=== PATIENT | female | born 1995 | race African-American/Black ===

== ENCOUNTER 2016-12-21 17:39 | Emergency (ER) | payer OTHER ==
[~2016-12-21] VITALS: Ht 152.4 cm; Wt 54.6 kg
[2016-12-21 17:54] VITALS: Ht 152.4 cm; Wt 54.6 kg
[2016-12-21] MEDS ORDERED: BCPILLS PO (19:07)
[2016-12-21] MEDS ORDERED: IBUPROFEN 200 MG TAB PO STA (19:28)
[2016-12-21] MEDS ORDERED: ACETAMINOPHEN 500 MG TAB PO STA (19:28)
--- NOTE | 2016-12-21 19:50 | EMERGENCY ROOM VISIT NOTE ---
History Report prepared by Vik: Delvis Snow Under the Supervision of: Dr. Henrique Fitch M.D. First contact with patient: 19:04 Chief Complaint: FEVER Stated Complaint: SWOLLEN LYMPH NODES IN NECK, FEVER History of Present Illness The patient is a 21 year old black female with no significant past medical history who presents to the ED with a cc of a constant fever beginning a week ago. Positive dry cough and swollen lymph nodes. Negative recent travel, antibiotic use, hx of cancer, chronic steroid use, rashes, hx of diabetes, urinary symptoms, recent falls, alcohol, tobacco, or drug use, and history of mono. She has been urinating and having BM normally. Her LNMP was three weeks ago. Source of History: patient Onset: a week ago Position: other (global) Quality: other (fever) Timing: constant Associated Symptoms: + cough Note: Associated symptoms: swollen lymph nodes. Review of Systems See HPI for pertinent positives and negatives. A total of ten systems were reviewed and were otherwise negative. Social History Smoking Status: Never Smoker Marital Status: single Housing Status: lives with roommate Occupation Status: [employer] student Current/Historical Medications Scheduled Control Pills ( Control Pills), 1 TAB PO DAILY Allergies Coded Allergies: Azithromycin (Verified Allergy, Intermediate, Hives, 12/21/16) Physical Exam Vital Signs Date Time Temp Pulse Resp B/P (MAP) Pulse Ox O2 Delivery O2 Flow Rate FiO2 12/21/16 20:48 84 18 141/91 99 Room Air 12/21/16 17:54 37.2 90 18 150/99 99 Room Air Physical Exam GENERAL: Awake, alert, well-appearing, NAD HENT: Normocephalic, atraumatic. There is no posterior oropharynx exudate. No posterior swelling or uvular deviation. EYES: Normal conjunctiva. Sclera non-icteric. NECK: No meningismus. No nuchal rigidity. FROM. Able to flex and extend. There are 2 non-tender hard posterior lymph nodes. No erythema, fluctuance, or pain. RESPIRATORY: CTAB, no rhonchi, wheezing, crackles CARDIAC: RRR, no MRG ABDOMEN: Soft, NTND, BS+ MSK: No chest wall TTP, no LE edema NEURO: GCS 15, CN 2-12 intact, moves all 4s on command SKIN: No rash or jaundice noted. Medical Decision & Procedures Laboratory Results 12/21/16 20:11 Red Blood Count 4.50, Mean Corpuscular Volume 88.4, Mean Corpuscular Hemoglobin 30.7, Mean Corpuscular Hemoglobin Concent 34.7, Mean Platelet Volume 10.1, Neutrophils (%) (Auto) 43.6, Lymphocytes (%) (Auto) 44.1, Monocytes (%) (Auto) 10.2, Eosinophils (%) (Auto) 1.5, Basophils (%) (Auto) 0.4, Neutrophils # (Auto ) 2.30, Lymphocytes # (Auto) 2.33, Monocytes # (Auto) 0.54, Eosinophils # (Auto ) 0.08, Basophils # (Auto) 0.02 12/21/16 20:11 Test 12/21/16 20:11 White Blood Count 5.28 K/uL (4.8-10.8) Red Blood Count 4.50 M/uL (4.2-5.4) Hemoglobin 13.8 g/dL (12.0-16.0) Hematocrit 39.8 % (37-47) Mean Corpuscular Volume 88.4 fL (80-100) Mean Corpuscular Hemoglobin 30.7 pg (25-34) Mean Corpuscular Hemoglobin Concent 34.7 g/dl (32-36) Platelet Count 251 K/uL (130-400) Mean Platelet Volume 10.1 fL (7.4-10.4) Neutrophils (%) (Auto) 43.6 % Lymphocytes (%) (Auto) 44.1 % Monocytes (%) (Auto) 10.2 % Eosinophils (%) (Auto) 1.5 % Basophils (%) (Auto) 0.4 % Neutrophils # (Auto) 2.30 K/uL (1.4-6.5) Lymphocytes # (Auto) 2.33 K/uL (1.2-3.4) Monocytes # (Auto) 0.54 K/uL (0.11-0.59) Eosinophils # (Auto) 0.08 K/uL (0-0.5) Basophils # (Auto) 0.02 K/uL (0-0.2) RDW Standard Deviation 41.3 fL (36.4-46.3) RDW Coefficient of Variation 12.8 % (11.5-14.5) Immature Granulocyte % (Auto) 0.2 % Immature Granulocyte # (Auto) 0.01 K/uL (0.00-0.02) Anion Gap 5.0 mmol/L (3-11) Est Creatinine Clear Calc Drug Dose 78.9 ml/min Estimated GFR () 120.3 Estimated GFR (Non- 103.8 BUN/Creatinine Ratio 8.5 (10-20) Calcium Level 8.8 mg/dl (8.5-10.1) Monoscreen NEG (NEG) Medications Administered Medications (Trade) Dose Ordered Sig/William Route Start Time Stop Time Status Last Admin Dose Admin Ibuprofen (Advil Tab) 400 mg NOW STAT PO 12/21/16 19:28 12/21/16 19:31 DC 12/21/16 19:56 400 MG Acetaminophen (Tylenol Tab) 1,000 mg NOW STAT PO 12/21/16 19:28 12/21/16 19:31 DC 12/21/16 19:56 1,000 MG ED Course 1904: The patient was evaluated in room A12. A complete history and physical exam was performed. Medical Decision The patient is a 21 year old black female with no significant past medical history who presents to the ED with a cc of a constant fever beginning a week ago. Positive dry cough and swollen lymph nodes. Negative recent travel, antibiotic use, hx of cancer, chronic steroid use, rashes, hx of diabetes, urinary symptoms, recent falls, alcohol, tobacco, or drug use, and history of mono. She has been urinating and having BM normally. Her LNMP was three weeks ago. Triage Nursing notes reviewed. The patient's presentation and history were concerning for etiologies such as viral syndrome, otitis, pharyngitis, pneumonia, influenza, meningitis, mono, urinary tract infection, sepsis, bacteremia, as well as others were entertained. Patient was seen and evaluated at the bedside. Patient is very well-appearing. Patient was concerned she had some fever in addition to some left-sided neck swelling. This was evaluated she had no tenderness to palpation no erythema and no fluctuance. Less likely lymphadenitis, cellulitis, or abscess. Blood work and a chest x-ray were completed. Patient did have a negative Monospot which is a consideration given her posterior cervical lymphadenopathy. She has no meningismus restrict range of motion less likely meningitis. Patient's posterior pharynx was clear this is unlikely to be an extension of a deep neck space abscess or infection. Patient was feeling improved. Patient was given strict follow-up, discharge, and follow-up instructions. Patient agreed with plan of care patient was safely discharged home. Impression Primary Impression: Fever Additional Impression: Lymphadenopathy of left cervical region Scribe Attestation The scribe's documentation has been prepared under my direction and personally reviewed by me in its entirety. I confirm that the note above accurately reflects all work, treatment, procedures, and medical decision making performed by me. Departure Information Dispostion Home / Self-Care Patient Instructions Lymphadenopathy, My [facility] Additional Instructions Please return to the emergency department if you have worsening or recurrent symptoms not amenable to at-home treatment. Please call for a follow-up appointment with her primary care physician. Please take your medications as prescribed. If you have other concerns and/or complaints please feel free to also call your primary care physician's office or return the ED for further evaluation, management, and treatment. You may take 600 mg Ibuprofen every 6 hours as needed for pain with food for no more than 2 consecutive days. You may take tylenol 1000 mg every 6 hours as needed for pain. You may take motrin and tylenol separately or at the same time. You have been examined and treated today on an emergency basis only. This is not a substitute for, or an effort to provide, complete comprehensive medical care. It is impossible to recognize and treat all injuries or illnesses in a single emergency department visit. It is therefore important that you follow up closely with [facility]. Call as soon as possible for an appointment. Thank you for your time and consideration. I look forward to speaking with you again soon. Please don't hesitate to call us if you have any questions. Problem Qualifiers Primary Impression: Fever Fever type: unspecified Qualified Codes: R50.9 - Fever, unspecified
--- NOTE | 2016-12-21 20:02 | DIAGNOSTIC IMAGING REPORT ---
SINGLE VIEW CHEST CLINICAL HISTORY: Cough and fever. FINDINGS: An AP, portable, upright chest radiograph is obtained. No prior studies are available for comparison at the time of dictation. The cardiomediastinal silhouette is unremarkable. The lungs and pleural spaces are clear. No pneumothorax is seen. The bony thorax is grossly intact. IMPRESSION: No active disease in the chest. Electronically signed by: uCrry Medina M.D. 12/21/2016 8:01 PM Dictated Date/Time: 12/21/2016 8:01 PM
[2016-12-21 20:23] LABS: BASO % 0.4 %; BASO ABS # 0.02 K/uL (0-0.2); COMPLETE YES; EOS % 1.5 %; HEMATOCRIT 39.8 % (37-47); IG% 0.2 %; LYMPH % 44.1 %; LYMPH ABS # 2.33 K/uL (1.2-3.4); MEAN CELL VOLUME 88.4 fL (80-100); MEAN CORPUSCULAR HEMOGLOBIN 30.7 pg (25-34); MEAN CORPUSCULAR HGB CONC 34.7 g/dl (32-36); MEAN PLATELET VOLUME 10.1 fL (7.4-10.4); MONO % 10.2 %; NEUT % 43.6 %; PLATELET COUNT 251 K/uL (130-400); WHITE BLOOD COUNT 5.28 K/uL (4.8-10.8)
[2016-12-21 20:43] LABS: BUN/CREATININE RATIO 8.5 (10-20); CALCIUM 8.8 mg/dl (8.5-10.1); CREATININE 0.81 mg/dl (0.60-1.20); POTASSIUM 3.6 mmol/L (3.5-5.1)
[2016-12-21 21:54] VITALS: BP 128/88; PULSE 85; TEMP 37.2; O2SAT 99
== END 2016-12-21 21:55 | disposition home or self-care (01) ==
LOC: C.EDB 17:42 → C.EDA 21:55
DX: R50.9 Fever, unspecified (principal); R59.1 Generalized enlarged lymph nodes